=== PATIENT | female | born 1965 | race Caucasian/White ===

== ENCOUNTER 2016-08-09 10:37 | Emergency (ER) | payer OTHER ==
[~2016-08-09] VITALS: Ht 162.6 cm; Wt 74.0 kg
[~2016-08-09 10:37] MED LIST: ADDERALL XR 2020 MG PO; ADVIL200 MG PO; ALBUTEROL17 GM IH; AUGMENTIN875 MG PO; BACTRIM,SEPT1 TABLET PO; BUSPAR5 MG PO; BUSPIRONE HCL10 MG PO; CEFDINIR300 MG PO; CLINDAMYCIN HC150 MG PO; CLINDAMYCIN HC300 MG PO; DELTASONE20 M1 PO; DICLOFENAC SODI75 MG PO; EFFEXOR XR150 MG PO; EFFEXOR XR75 MG PO; EFFEXOR100 MG PO; EFFEXOR75 MG PO; GABAPENTIN100 MG PO; GABAPENTIN600 MG PO; INDOCIN25 MG PO; MEDROL DOSEPAK4 MG PO; METAXALONE800 MG PO; METHOCARBAMOL500 MG PO; MOBIC15 MG PO; MOTRIN600 MG PO; NAPROSYN500 MG PO; NAPROXEN500 MG PO; NORCO 5/3251 TABLET PO; NORCO 7.5/321 TABLET PO; PERCOCET 10/1 TABLET PO; PERCOCET 5/31 TABLET PO; PERIDEX1 ML MM; PREDNISONE10 MG PO; PREDNISONE20 MG PO; PREDNISONE50 MG PO; ULTRACET1 TABLET PO; ULTRAM50 MG PO; VALIUM2 MG PO; VALIUM5 MG PO; VENTOLIN HFA18 GM IH; VITAMIN B-125000 MCG SL; ZITHROMAX Z-PA250 MG PO
[2016-08-09] MEDS ORDERED: ULTRAM50 MG PO (12:40)
[2016-08-09] MEDS ORDERED: LIDODERM 5% P1 PATCH TD (12:40)
[2016-08-09 13:03] VITALS: BP 107/76
== END 2016-08-09 13:20 | disposition home or self-care (01) ==
LOC: EME 10:37
DX: G89.29 Other chronic pain (principal); M54.5 Low back pain; M17.0 Bilateral primary osteoarthritis of knee; F17.200 Nicotine dependence, unspecified, uncomplicated
CPT/HCPCS: 99281; 99284; J3010

== ENCOUNTER 2016-11-03 11:14 | Emergency (ER) | payer OTHER ==
[~2016-11-03] VITALS: Ht 162.6 cm; Wt 72.9 kg
[~2016-11-03 11:14] MED LIST changes: +LIDODERM 5% P1 PATCH TD
[2016-11-03] MEDS ORDERED: MOTRIN800 MG PO (14:57)
[2016-11-03] MEDS ORDERED: FLEXERIL10 MG PO (14:57)
[2016-11-03 15:08] VITALS: BP 106/69
== END 2016-11-03 15:08 | disposition home or self-care (01) ==
LOC: EME 11:14
DX: M54.42 Lumbago with sciatica, left side (principal); F17.200 Nicotine dependence, unspecified, uncomplicated
CPT/HCPCS: 72100; 99281; 99284; J1885

== ENCOUNTER 2017-04-27 13:26 | Emergency (ER) | payer OTHER ==
[~2017-04-27] VITALS: Ht 162.6 cm; Wt 70.1 kg
[~2017-04-27 13:26] MED LIST changes: +FLEXERIL10 MG PO; +MOTRIN800 MG PO
[2017-04-27 14:47] LABS: HEMATOCRIT 40.1 % (36.0-46.0); HEMOGLOBIN 13.9 G/DL (11.9-15.5); MCH 31.2 PG (29.0-34.0); MCHC 34.7 G/DL (30.0-36.0); MCV 89.9 FL (83-99); PLATELET COUNT 346 K/uL (156-360); RBC DIS.WIDTH-CV 12.4 % (11.8-14.6); RBC DIS.WIDTH-SD 41.1 % (39-53); RED BLOOD COUNT 4.46 M/uL (3.80-5.20); WHITE BLOOD COUNT 8.3 K/uL (4.1-10.2)
[2017-04-27 14:58] LABS: CHLORIDE 104 mEq/L (99-109); POTASSIUM 4.1 mEq/L (3.7-5.4); SODIUM 140 mEq/L (136-147)
[2017-04-27 15:00] LABS: GLUCOSE 84 mg/dL (70-99)
[2017-04-27 15:03] LABS: CREATININE 0.6 mg/dL (0.6-1.3); GFR ESTIMATE (CALCULATED) > 59 mL/min/
[2017-04-27 15:04] LABS: UREA NITROGEN (BUN) 11 mg/dL (9-23)
[2017-04-27 15:14] LABS: TROP-I INTERPRETATION NEGATIVE; TROPONIN-I < 0.01 ng/mL (0.0-0.30)
[2017-04-27 15:15] LABS: QUANTITATIVE HCG < 4.0 MIU/ML
[2017-04-27 16:00] VITALS: BP 118/69
[2017-04-27 16:44] LABS: TROP-I INTERPRETATION NEGATIVE; TROPONIN-I < 0.01 ng/mL (0.0-0.30)
== END 2017-04-27 16:30 | disposition left against medical advice (07) ==
LOC: EME 13:26
PROVIDERS: Physician Assistant
DX: R07.9 Chest pain, unspecified (principal); F17.200 Nicotine dependence, unspecified, uncomplicated; J45.909 Unspecified asthma, uncomplicated; G89.29 Other chronic pain; M54.9 Dorsalgia, unspecified
CPT/HCPCS: 71046; 80048; 84484; 84702; 85027; 93005; 99281; 99284

== ENCOUNTER 2017-06-23 11:23 | Emergency (ER) | payer OTHER | END 2017-06-23 11:43 | disposition left against medical advice (07) | LOC: EME 11:23 | DX: Z76.0 Encounter for issue of repeat prescription (principal); Z53.21 Procedure and treatment not carried out due to patient leaving prior to being seen by health care provider ==